=== PATIENT | female | born 1940 | race Caucasian/White ===

== ENCOUNTER → 2017-08-07 | Outpatient (CLI) | payer OTHER ==
[~2017-08-07] MED LIST: FISH1000 PO; LEVSOD50 PO; STOOL SOFTENER PO; TRIHYD253A PO
== END ==
LOC: LAB SHORT 14:13 → PLD 14:13
DX: D48.5 Neoplasm of uncertain behavior of skin (principal)
CPT/HCPCS: 88305

== ENCOUNTER → 2018-01-28 | Outpatient (CLI) | payer OTHER | END | disposition home or self-care (01) | LOC: LAB EV 09:00 → EDSTATUS 01-23 12:55 → LAB FUT 01-23 12:55 | DX: L98.9 Disorder of the skin and subcutaneous tissue, unspecified (principal) | CPT/HCPCS: 87177; 87209 ==

== ENCOUNTER → 2018-09-20 | Outpatient (CLI) | payer OTHER | END | disposition home or self-care (01) | LOC: PLD 08:24 → LAB SHORT 08:24 | DX: D22.71 Melanocytic nevi of right lower limb, including hip (principal) | CPT/HCPCS: 88305 ==

== ENCOUNTER → 2019-06-18 | Outpatient (CLI) | payer OTHER | LOC: LAB SHORT 11:00 → LAB EV 11:00 | DX: R39.198 Other difficulties with micturition (principal) | CPT/HCPCS: 87077; 87086; 87186 ==

== ENCOUNTER → 2021-04-15 | Outpatient (CLI) | payer OTHER ==
[2021-04-15 13:31] LABS: Stool Occult Bld Immuno 1 Negative (NEGATIVE)
== END | disposition home or self-care (01) ==
LOC: LAB 10:00 → LAB SHORT 10:00
PROVIDERS: Family Medicine
DX: Z12.11 Encounter for screening for malignant neoplasm of colon (principal)
CPT/HCPCS: G0328

== ENCOUNTER → 2021-07-11 | Outpatient (CLI) | payer OTHER ==
[2021-07-11 17:17] LABS: BASOPHILS ABSOLUTE AUTO 0.02 K/mm3 (0.00-0.23); BASOPHILS PERCENT AUTO 0 % (0-2); EOSINOPHILS ABSOLUTE AUTO 0.05 K/mm3 (0.00-0.68); EOSINOPHILS PERCENT AUTO 1 % (0-6); Hematocrit 32.9 % (33.0-51.0); IMMATURE GRAN ABSOLUTE AUTO 0.02 K/mm3 (0.00-0.10); IMMATURE GRAN PERCENT AUTO 0 % (0-1); LYMPHOCYTES ABSOLUTE AUTO 0.87 K/mm3 (0.84-5.20); LYMPHOCYTES PERCENT AUTO 12 % (21-46); MONOCYTES ABSOLUTE AUTO 0.95 K/mm3 (0.16-1.47); MONOCYTES PERCENT AUTO 13 % (4-13); Mean Corpuscular HGB 31.3 pg (26.0-34.0); Mean Corpuscular HGB Conc 33.4 g/dL (31.5-36.5); Mean Corpuscular Volume 94 fL (80-100); Mean Platelet Volume 8.7 fL (9.1-12.4); NEUTROPHILS ABSOLUTE AUTO 5.46 K/mm3 (1.96-9.15); NEUTROPHILS PERCENT AUTO 74 % (41-73); Platelet Count 402 K/mm3 (150-400); RDW Coefficient Variation 12.9 % (11.7-14.2); RDW Standard Deviation 43.9 fL (35.1-46.3); Red Blood Cell Count 3.52 M/mm3 (3.80-5.20); White Blood Cell Count 7.37 K/mm3 (4.00-11.30)
[2021-07-11 17:43] LABS: Albumin, Blood 2.8 g/dL (3.4-5.0); Albumin/Globulin Ratio 0.7 (0.8-1.8); Bilirubin, Total 0.2 mg/dL (0.1-1.0); Bun/Creatinine Ratio 13.2 (12.0-20.0); Calcium, Blood 8.5 mg/dL (8.5-10.1); Creatinine, Blood 1.06 mg/dL (0.40-1.00); Free Thyroxine 1.22 ng/dL (0.70-1.60); Thyroid Stimulating Hormone 1.874 uIU/mL (0.360-4.800); Total Protein, Blood 6.8 g/dL (6.4-8.2)
== END ==
LOC: LAB SHORT 17:10
PROVIDERS: General Practice
DX: R53.81 Other malaise (principal)
CPT/HCPCS: 80053; 83880; 84439; 84443; 85025

== ENCOUNTER 2022-02-08 07:09 | Day surgery (SDC) | payer OTHER ==
[~2022-02-08] VITALS: Ht 162.6 cm; Wt 74.1 kg
[2022-02-08] MEDS ORDERED: PANT40 PO (07:38)
[2022-02-08] MEDS ORDERED: ATOR10 PO (07:39)
[2022-02-08] MEDS ORDERED: DUPIXENT300 MG/21 SQ (07:39)
[2022-02-08] MEDS ORDERED: LISI20 PO (07:39)
--- NOTE | 2022-02-08 07:47 | NUR ---
02/08/22 0747 Alejandrina Ellis CALL LIGHT WITHIN REACH. MOHAN IN AT 0743 IN LEFT EYE AND AFIA AT 0744
== END 2022-02-08 09:26 | disposition home or self-care (01) ==
LOC: ORSCSDS 07:09
PROVIDERS: Ophthalmology
PROC: 08DK3ZZ Extraction of Left Lens, Percutaneous Approach (ICD-10-PCS; principal; 2022-02-08 08:30)
DX: H25.12 Age-related nuclear cataract, left eye (principal); E07.9 Disorder of thyroid, unspecified; I10 Essential (primary) hypertension; Z79.899 Other long term (current) drug therapy
CPT/HCPCS: J2001; J2250; J3010; J7040; V2632

== ENCOUNTER 2022-08-24 22:25 | Emergency (ER) | payer OTHER ==
[~2022-08-24] VITALS: Ht 162.6 cm; Wt 76.2 kg
[~2022-08-24 22:25] MED LIST changes: +ATOR10 PO; +DUPIXENT300 MG/21 SQ; +LISI20 PO; +PANT40 PO
[2022-08-24 23:14] LABS: BASOPHILS ABSOLUTE AUTO 0.07 K/mm3 (0.00-0.23); BASOPHILS PERCENT AUTO 1 % (0-2); EOSINOPHILS ABSOLUTE AUTO 0.24 K/mm3 (0.00-0.68); EOSINOPHILS PERCENT AUTO 2 % (0-6); Hematocrit 36.8 % (33.0-51.0); Hemoglobin 12.3 g/dL (11.5-16.0); IMMATURE GRAN ABSOLUTE AUTO 0.05 K/mm3 (0.00-0.10); IMMATURE GRAN PERCENT AUTO 0 % (0-1); LYMPHOCYTES ABSOLUTE AUTO 1.56 K/mm3 (0.84-5.20); LYMPHOCYTES PERCENT AUTO 11 % (21-46); MONOCYTES ABSOLUTE AUTO 0.95 K/mm3 (0.16-1.47); MONOCYTES PERCENT AUTO 7 % (4-13); Mean Corpuscular HGB 31.9 pg (26.0-34.0); Mean Corpuscular HGB Conc 33.4 g/dL (31.5-36.5); Mean Corpuscular Volume 95 fL (80-100); Mean Platelet Volume 9.2 fL (9.1-12.4); NEUTROPHILS ABSOLUTE AUTO 11.45 K/mm3 (1.96-9.15); NEUTROPHILS PERCENT AUTO 80 % (41-73); Platelet Count 324 K/mm3 (150-400); RDW Coefficient Variation 13.2 % (11.7-14.2); RDW Standard Deviation 46.5 fL (35.1-46.3); Red Blood Cell Count 3.86 M/mm3 (3.80-5.20); White Blood Cell Count 14.32 K/mm3 (4.00-11.30)
[2022-08-24 23:33] LABS: Albumin, Blood 3.2 g/dL (3.4-5.0); Albumin/Globulin Ratio 0.9 (0.8-1.8); Bilirubin, Total 0.3 mg/dL (0.1-1.0); Bun/Creatinine Ratio 17.3 (12.0-20.0); Calcium, Blood 8.8 mg/dL (8.5-10.1); Creatinine, Blood 0.93 mg/dL (0.40-1.00); Globulin, Blood 3.7 g/dL (2.2-4.0); Potassium, Blood 4.2 mmol/L (3.5-5.5); Total Protein, Blood 6.9 g/dL (6.4-8.2)
[2022-08-25 00:27] LABS: Source, Urine Clean Catch
[2022-08-25 01:23] LABS: Bilirubin, Urine Neg (Neg); Blood, Urine 1+ (Neg); Glucose Qualitative, Urine Neg (Neg); Ketones, Urine Neg (Neg); Leukocyte Esterase, Urine 3+ (Neg); Nitrite, Urine Neg (Neg); Protein, Urine Neg (Neg); Urobilinogen, Urine NORM (Normal)
[2022-08-25 01:34] LABS: Appearance, Urine Hazy (Clear); Color, Urine Yellow (P-Yellow)
[2022-08-25 01:35] LABS: Bacteria Mod /hpf; Squamous Epithelial Cells Rare /hpf (Few)
[2022-08-25] MEDS ORDERED: CIPR500 PO (04:26)
[2022-08-25] MEDS ORDERED: METR500 PO (04:26)
[2022-08-25 04:58] VITALS: BP 202/87
== END 2022-08-25 05:14 | disposition home or self-care (01) ==
LOC: ER 22:25
PROVIDERS: Student in an Organized Health Care Education/Training Program
DX: K57.32 Diverticulitis of large intestine without perforation or abscess without bleeding (principal); D72.829 Elevated white blood cell count, unspecified; I10 Essential (primary) hypertension; E78.5 Hyperlipidemia, unspecified; E03.9 Hypothyroidism, unspecified; K21.9 Gastro-esophageal reflux disease without esophagitis; Z88.0 Allergy status to penicillin; Z79.899 Other long term (current) drug therapy
CPT/HCPCS: 74177; 80053; 81001; 83690; 85025; 87077; 87086; 87186; 96374-59; 96375; 99284-25; A9270; J0360; J1885; J7030; Q9967

== ENCOUNTER 2023-11-01 15:08 | Inpatient (IN) | payer OTHER ==
[~2023-11-01] VITALS: Ht 162.6 cm; Wt 79.3 kg
[~2023-11-01 15:08] MED LIST changes: +CIPR500 PO; -DUPIXENT300 MG/21 SQ; +METR500 PO
[2023-11-01 15:45] LABS: BASOPHILS ABSOLUTE AUTO 0.08 K/mm3 (0.00-0.23); BASOPHILS PERCENT AUTO 1 % (0-2); EOSINOPHILS ABSOLUTE AUTO 0.27 K/mm3 (0.00-0.68); EOSINOPHILS PERCENT AUTO 2 % (0-6); Hematocrit 38.2 % (33.0-51.0); Hemoglobin 12.8 g/dL (11.5-16.0); IMMATURE GRAN ABSOLUTE AUTO 0.18 K/mm3 (0.00-0.10); IMMATURE GRAN PERCENT AUTO 1 % (0-1); LYMPHOCYTES ABSOLUTE AUTO 2.34 K/mm3 (0.84-5.20); LYMPHOCYTES PERCENT AUTO 15 % (21-46); MONOCYTES ABSOLUTE AUTO 1.15 K/mm3 (0.16-1.47); MONOCYTES PERCENT AUTO 7 % (4-13); Mean Corpuscular HGB 32.4 pg (26.0-34.0); Mean Corpuscular HGB Conc 33.5 g/dL (31.5-36.5); Mean Corpuscular Volume 97 fL (80-100); NEUTROPHILS ABSOLUTE AUTO 11.46 K/mm3 (1.96-9.15); NEUTROPHILS PERCENT AUTO 74 % (41-73); Platelet Count 218 K/mm3 (150-400); RDW Coefficient Variation 13.3 % (11.7-14.2); RDW Standard Deviation 47.9 fL (35.1-46.3); Red Blood Cell Count 3.95 M/mm3 (3.80-5.20); White Blood Cell Count 15.48 K/mm3 (4.00-11.30)
[2023-11-01 16:01] LABS: Albumin/Globulin Ratio 0.8 (0.8-1.8); Bilirubin, Total 0.5 mg/dL (0.1-1.0); Bun/Creatinine Ratio 20.5 (12.0-20.0); Calcium, Blood 8.6 mg/dL (8.5-10.1); Creatinine, Blood 0.83 mg/dL (0.40-1.00); Globulin, Blood 3.6 g/dL (2.2-4.0); Potassium, Blood 4.3 mmol/L (3.5-5.5); Total Protein, Blood 6.6 g/dL (6.4-8.2)
[2023-11-01] MEDS ORDERED: Acetaminophen 325 MG TABLET PO PRN (17:25)
[2023-11-01] MEDS ORDERED: Labetalol HCL 5 MG/ML 4ML Injection (Single Dose) IV PRN (17:25)
[2023-11-01] MEDS ORDERED: NS 1,000 ML IV SCH (17:30)
[2023-11-01] MEDS ORDERED: Ondansetron HCl 2 MG / ML 2ML Vial IV PRN (17:30)
[2023-11-01 18:11] LABS: Anti-Xa UFH, PHA Monitoring <0.10 IU/mL; Prothrombin Time Results 10.7 Sec (9.7-11.5)
[2023-11-01] MEDS ORDERED: Heparin Sodium 5000 Units/ML 1ML MDV IV ONE (18:15)
[2023-11-01] MEDS ORDERED: Heparin Sodium,Porcine/0.5 NS 500 ML IV SCH (18:15)
[2023-11-01] MEDS ORDERED: EUTHYROX125 MCG PO (19:45)
[2023-11-01] MEDS ORDERED: GABA100 PO (19:46)
[2023-11-01] MEDS ORDERED: CARV6.25 PO (20:16)
[2023-11-01] MEDS ORDERED: BENEFIBER PO (20:17)
[2023-11-01 20:58] VITALS: BP 194/97
[2023-11-01 23:11] VITALS: BP 200/115
[2023-11-01] MEDS ORDERED: HydrALAZINE HCl 25 MG Tab PO PRN (23:35)
[2023-11-02] VITALS (8 sets, daily range): BP systolic 155–205; BP diastolic 71–118
--- NOTE | 2023-11-02 | NUR ---
CONTACTED HOSPITALIST AND INFORMED HIM OF PATIENTS PERSISTENT ELEVATED BP'S. ORDER TO DC LABETALOL AND GIVE HYDRALIZINE INSTEAD. DECLINED TO PUT PATIENT ON TELE.
[2023-11-02 02:35] LABS: Hemoglobin 11.8 g/dL (11.5-16.0); Mean Corpuscular HGB 32.4 pg (26.0-34.0); Mean Corpuscular HGB Conc 33.7 g/dL (31.5-36.5); Mean Corpuscular Volume 96 fL (80-100); Mean Platelet Volume 9.2 fL (9.1-12.4); Platelet Count 205 K/mm3 (150-400); RDW Coefficient Variation 13.3 % (11.7-14.2); RDW Standard Deviation 47.8 fL (35.1-46.3); Red Blood Cell Count 3.64 M/mm3 (3.80-5.20); White Blood Cell Count 13.92 K/mm3 (4.00-11.30)
[2023-11-02] MEDS ORDERED: Dose Adjust by Pharmacy XX STA ×2 (02:42→18:13)
--- NOTE | 2023-11-02 03:05 | NUR ---
PHARMACY CONTACTED ME TO STOP HEPARIN INFUSION FOR 1 HOUR. HEPARIN STOPPED AT 0245. AND TO START IN 1 HOUR (0345) AT NEW RATE OF 15 U/KG/HR.
[2023-11-02 03:10] LABS: Bun/Creatinine Ratio 18.3 (12.0-20.0); Calcium, Blood 8.3 mg/dL (8.5-10.1); Creatinine, Blood 0.76 mg/dL (0.40-1.00); Potassium, Blood 3.8 mmol/L (3.5-5.5)
--- NOTE | 2023-11-02 03:48 | NUR ---
HEPARIN RESTARTED AT 15U/KG/HR AT 0345.
[2023-11-02] MEDS ORDERED: Pantoprazole Sodium 40 MG Tab PO SCH (06:00)
[2023-11-02] MEDS ORDERED: Levothyroxine Sodium 0.05 MG Tab PO SCH (06:00)
[2023-11-02] MEDS ORDERED: Lisinopril 20 MG Tab PO SCH (09:00)
[2023-11-02] MEDS ORDERED: LORazepam 2 MG/ML 1ML Injection IV PRN (12:35)
[2023-11-02] MEDS ORDERED: HydrALAZINE HCl 20 MG / ML 1ML Vial IV PRN (13:00)
[2023-11-02] MEDS ORDERED: HydrALAZINE HCl 20 MG / ML 1ML Vial IV ONE (13:00)
--- NOTE | 2023-11-02 13:41 | NUR ---
report received verified. pt laying quietly in bed with heparin infusing per protocol. htn noted and md was notified, pt medicated with prn medication. pt concerned with not eating and i explained the severity of situation, pt understands waiting for possible procedure. pt still hypertensive md aware and iv medications ordered. shortly after adminidtration pt had flushing response that scared pt making her upset, vital signs were stable no sob noted. heparin and fluids still infusing
--- NOTE | 2023-11-02 14:45 | NUR ---
Pt. is awake in bed but displaying a great deal of discomfort and quiet agitation. Spouse is at bedside. Facilitate a short family review and listwen with interest, empathy , and a calming presence. Pt. verbalized her personal trust in the Lord. Prayed with the Pt. Pt. displayed evidence her agitation being mildly reduced. Spouse verbalizedgratitude for the spiritual care visit.
[2023-11-02] MEDS ORDERED: NS 1,000 ML IV ONE ×2 (14:46→16:25)
[2023-11-02] MEDS ORDERED: Heparin Sodium 1000 Units/ML 10ML MDV ONE ×2 (14:46→17:01)
[2023-11-02] MEDS ORDERED: FentaNYL Citrate 50 MCG/ML 2 ML Injection ONE (16:25)
[2023-11-02] MEDS ORDERED: Ondansetron HCl 2 MG / ML 2ML Vial ONE (16:25)
[2023-11-02] MEDS ORDERED: Midazolam HCl 1MG / ML 2ML Vial ONE (16:25)
--- NOTE | 2023-11-02 17:32 | NUR ---
PT VERY UPSET THAT MD HAS NOT COME TO VERIFIY PROCEDURE SO DR SCHWAB WAS NOTIFIED AND HE CAME TO SPEAK WITH PT, PT SOMEWHAT CALMED. PT UNDERSTANDS SEVERITY OF THE ISSUE. DR SHARMA INTO SEE PT AND STATES HE WAS GOING TO DOO PROCEDURE THIS EVENING. 1600 PT TAKEN DOWN FOR PROCEDURE HEPARIN STOPPED.
[2023-11-02] MEDS ORDERED: Prednisone10 MG (17:59)
[2023-11-02] MEDS ORDERED: DUPIXENT300 MG/21 SQ (18:25)
[2023-11-03] VITALS (8 sets, daily range): BP systolic 150–205; BP diastolic 66–83
[2023-11-03 02:23] LABS: BASOPHILS ABSOLUTE AUTO 0.03 K/mm3 (0.00-0.23); BASOPHILS PERCENT AUTO 0 % (0-2); EOSINOPHILS ABSOLUTE AUTO 0.04 K/mm3 (0.00-0.68); EOSINOPHILS PERCENT AUTO 0 % (0-6); Hemoglobin 11.7 g/dL (11.5-16.0); IMMATURE GRAN PERCENT AUTO 1 % (0-1); LYMPHOCYTES ABSOLUTE AUTO 1.16 K/mm3 (0.84-5.20); LYMPHOCYTES PERCENT AUTO 9 % (21-46); MONOCYTES ABSOLUTE AUTO 0.73 K/mm3 (0.16-1.47); MONOCYTES PERCENT AUTO 5 % (4-13); Mean Corpuscular HGB 32.9 pg (26.0-34.0); Mean Corpuscular HGB Conc 34.4 g/dL (31.5-36.5); Mean Corpuscular Volume 96 fL (80-100); Mean Platelet Volume 9.1 fL (9.1-12.4); NEUTROPHILS ABSOLUTE AUTO 11.42 K/mm3 (1.96-9.15); NEUTROPHILS PERCENT AUTO 85 % (41-73); Platelet Count 224 K/mm3 (150-400); RDW Coefficient Variation 13.4 % (11.7-14.2); RDW Standard Deviation 47.7 fL (35.1-46.3); Red Blood Cell Count 3.56 M/mm3 (3.80-5.20); White Blood Cell Count 13.48 K/mm3 (4.00-11.30)
--- NOTE | 2023-11-03 05:42 | NUR ---
Rn shift summary: Patient is alert and oriented. Heparin drip was restarted at 1940 at 12units/kg/hr. Pt with closure device to back of Left leg just below her knee. Drsg is a tegaderm which has remained clean and dry. Pulse is present, foot warm. Patient has been medicated with tylenol x2 for discomfort and this am for ONOFRE. Pt BP remains high, medicated with po hydralazine 25mg at about 2200. BP was higher this am so medicated with 10mg hydralazine IV. Pt did say she had some face flushing with this med and did have an emisis of 125 clear liquid 25 min later. Pt declines any zofran, states the nausea has passed. Pt is up to the BSC with 1 assist due to lines and tele. Call light in reach and uses it appropriately.
--- NOTE | 2023-11-03 06:46 | NUR ---
0635 Pt had another emisis, partial bed bath, new upper linen. Pt states headache is a little better. Patient has been more restless and agitated after IV hydralizine, Did not have any issues with the po version. Pt resting quietly right now. Will cont to monitor and report to day shift nurse .
[2023-11-03] MEDS ORDERED: Carvedilol 6.25 MG Tab PO SCH ×4 (08:30→21:00)
[2023-11-03] MEDS ORDERED: Dose Adjust by Pharmacy XX STA (09:06)
[2023-11-03] MEDS ORDERED: Apixaban 5 MG Tab PO SCH (10:00)
[2023-11-03] MEDS ORDERED: Carvedilol 6.25 MG Tab PO ONE (13:10)
[2023-11-03] MEDS ORDERED: Calcium Carbonate 500 MG Tab Chew PO PRN (13:10)
[2023-11-03] MEDS ORDERED: Famotidine 20 MG Tab PO SCH (16:00)
[2023-11-03] MEDS ORDERED: AmLODIPine Besylate 5 MG Tab PO SCH (16:00)
[2023-11-03] MEDS ORDERED: Lisinopril 20 MG Tab PO ONE (17:00)
[2023-11-03] MEDS ORDERED: ALPRAZolam 0.5 MG Tab PO PRN (17:00)
[2023-11-03] MEDS ORDERED: ALPRAZolam 0.5 MG Tab PO ONE (17:00)
--- NOTE | 2023-11-03 19:34 | NUR ---
VSS except for high BP of 191/76 and as high oas 205/83, MD notifed each time, MD increased coreg, added norvac, and added a one time additional dose of lisinopril, and give a dose of 0.5mg of xanax for anxiety, BP was 183/78 by end of shift, denies SOB, states mild headach that was well managed with rest and relaxing, ambulates with 1x assist, on RA. Lungs diminished, heart regular, heperin drip changed to eliquis, LLE dressing changed, new dressing C/D/I. Pt can make needs known, call carmichael in hand, bed in lowest position.
[2023-11-04 04:50] LABS: BASOPHILS ABSOLUTE AUTO 0.05 K/mm3 (0.00-0.23); BASOPHILS PERCENT AUTO 1 % (0-2); EOSINOPHILS ABSOLUTE AUTO 0.23 K/mm3 (0.00-0.68); EOSINOPHILS PERCENT AUTO 2 % (0-6); Hematocrit 32.2 % (33.0-51.0); IMMATURE GRAN ABSOLUTE AUTO 0.08 K/mm3 (0.00-0.10); IMMATURE GRAN PERCENT AUTO 1 % (0-1); LYMPHOCYTES PERCENT AUTO 17 % (21-46); MONOCYTES ABSOLUTE AUTO 0.85 K/mm3 (0.16-1.47); MONOCYTES PERCENT AUTO 8 % (4-13); Mean Corpuscular HGB 32.4 pg (26.0-34.0); Mean Corpuscular HGB Conc 34.2 g/dL (31.5-36.5); Mean Corpuscular Volume 95 fL (80-100); Mean Platelet Volume 8.8 fL (9.1-12.4); NEUTROPHILS ABSOLUTE AUTO 7.52 K/mm3 (1.96-9.15); NEUTROPHILS PERCENT AUTO 71 % (41-73); Platelet Count 214 K/mm3 (150-400); RDW Coefficient Variation 13.4 % (11.7-14.2); RDW Standard Deviation 46.8 fL (35.1-46.3); White Blood Cell Count 10.53 K/mm3 (4.00-11.30)
[2023-11-04 05:18] LABS: Bun/Creatinine Ratio 11.9 (12.0-20.0); Calcium, Blood 8.2 mg/dL (8.5-10.1); Creatinine, Blood 0.76 mg/dL (0.40-1.00); Potassium, Blood 3.4 mmol/L (3.5-5.5)
[2023-11-04 05:22] VITALS: BP 158/73
--- NOTE | 2023-11-04 05:49 | NUR ---
SHIFT SUMMARY - NO ACUTE CHANGES THROUGHOUT THE SHIFT. PT DENIED ANY REPORTS OF PAIN OR SOB. PT UP WITH SBA TO BRP - RESPIRATIONS EVEN AND UNLABORED WITH THIS ACTIVITY. CALL LIGHT WITHIN REACH. BED IN LOW POSITION. FLUIDS AT BEDSIDE. WILL CONTINUE TO MONITOR UNTIL AM SHIFT CHANGE.
[2023-11-04 07:31] VITALS: BP 155/69
[2023-11-04] MEDS ORDERED: Potassium Chl 20MEQ/Water100ML 100 ML IV SCH (08:20)
[2023-11-04] MEDS ORDERED: AmLODIPine Besylate 5 MG Tab PO SCH (09:00)
[2023-11-04] MEDS ORDERED: AMLO10 PO (09:34)
[2023-11-04] MEDS ORDERED: ACET325 PO (09:34)
[2023-11-04] MEDS ORDERED: Calcium Carbon500 MG PO (09:35)
[2023-11-04] MEDS ORDERED: ELIQUIS5 M2 PO (09:35)
[2023-11-04] MEDS ORDERED: Docusate Sodium 100 MG UDC PO ONE (10:30)
--- NOTE | 2023-11-04 14:32 | NUR ---
VSS, A-0X4, denies any pain, denies any nausea, denies SOB, ambulagtes with SB assist to the bathroom, on RA. Lungs clear and diminished, heart regular, NS on tele, bowel sounds normative, pt had 1x BM during shift. Pt D/c at 1425, D/C instructions given, safety ensured.
[2023-11-10] MEDS ORDERED: Apixaban 5 MG Tab PO SCH (09:00)
== END 2023-11-04 15:40 | disposition home or self-care (01) | DRG 270 ==
LOC: ER 15:08 → MEDS 17:21 → ENPENDDIS 11-04 09:33 → MEDS 11-04 15:40
PROVIDERS: Emergency Medicine; Internal Medicine; Nurse Practitioner Acute Care; ADMIT Internal Medicine
PROC: 06CN3ZZ Extirpation of Matter from Left Femoral Vein, Percutaneous Approach (ICD-10-PCS; principal; 2023-11-02)
PROC: 06CD3ZZ Extirpation of Matter from Left Common Iliac Vein, Percutaneous Approach (ICD-10-PCS; 2023-11-02)
PROC: B5191ZZ Fluoroscopy of Inferior Vena Cava using Low Osmolar Contrast (ICD-10-PCS; 2023-11-02)
PROC: B51C1ZZ Fluoroscopy of Left Lower Extremity Veins using Low Osmolar Contrast (ICD-10-PCS; 2023-11-02)
DX: I82.412 Acute embolism and thrombosis of left femoral vein (principal); I26.99 Other pulmonary embolism without acute cor pulmonale; I82.422 Acute embolism and thrombosis of left iliac vein; I82.432 Acute embolism and thrombosis of left popliteal vein; K21.9 Gastro-esophageal reflux disease without esophagitis; F41.9 Anxiety disorder, unspecified; E78.5 Hyperlipidemia, unspecified; I10 Essential (primary) hypertension; E03.9 Hypothyroidism, unspecified; G62.9 Polyneuropathy, unspecified; Z88.0 Allergy status to penicillin; Z79.899 Other long term (current) drug therapy; Z79.890 Hormone replacement therapy; Z79.2 Long term (current) use of antibiotics; Z90.49 Acquired absence of other specified parts of digestive tract; Z90.710 Acquired absence of both cervix and uterus
CPT/HCPCS: 36415; 71260; 76937; 80048; 80053; 85025; 85027; 85520; 85610; 93306; 96374-59; 99152; 99153; 99284-25; A9270; C1753; C1757; C1769; C1887; C1894; G0378; J0360; J1644; J2250; J2405; J3010; J3480; J7030; Q9967